=== PATIENT | female | born 2000 | race Caucasian/White ===

== ENCOUNTER 2023-07-16 02:00 | Emergency (ER) | payer MEDICAID ==
[~2023-07-16] VITALS: Ht 165.1 cm; Wt 79.4 kg
[2023-07-16] MEDS ORDERED: METOCLOPRAMIDE HCL 10 MG/2 ML VIAL ONE (02:25)
[2023-07-16] MEDS ORDERED: diphenhydrAMINE 50 MG/1 ML VIAL ONE (02:25)
[2023-07-16] MEDS: IV NORMAL SALINE 1000 ML BAG IV ONE (02:37)
[2023-07-16] MEDS: METOCLOPRAMIDE HCL 10 MG/2 ML VIAL IV ONE (02:37)
[2023-07-16] MEDS: diphenhydrAMINE 50 MG/1 ML VIAL IV ONE (02:37)
[2023-07-16 03:14] LABS: BASOPHILS % (AUTO) 0.1 % (0.0-2.0); HEMATOCRIT 40.7 % (31.2-41.9); HEMOGLOBIN 13.9 g/dL (10.9-14.3); LYMPHOCYTES # (AUTO) 0.6 K/uL (0.8-4.8); LYMPHOCYTES % (AUTO) 5.7 % (20.5-51.5); MEAN CORPUSCULAR HEMOGLOBIN 32.9 uug (24.7-32.8); MEAN CORPUSCULAR HGB CONC 34 g/dL (32.3-35.6); MEAN CORPUSCULAR VOLUME 96.4 fL (75.5-95.3); MONOCYTES # (AUTO) 0.2 K/uL (0.1-1.30); MONOCYTES % (AUTO) 1.9 % (0.0-11.0); NEUTROPHILS % (AUTO) 92.3 % (38.5-71.5); PLATELET COUNT (AUTO) 283 K/uL (179-408); RED BLOOD CELL COUNT(AUTO) 4.22 MIL/uL (3.63-4.92); RED CELL DISTRIBUTION WIDTH 13.4 % (12.3-17.7); WHITE BLOOD COUNT (AUTO) 10.8 K/uL (3.8-11.8)
[2023-07-16 03:17] LABS: CALCIUM 9.7 mg/dL (8.5-10.1); CREATININE 0.8 mg/dL (0.6-1.3); POTASSIUM 3.7 mmol/L (3.5-5.1)
[2023-07-16 03:18] LABS: DIFFERENTIAL COMMENT 1
[2023-07-16 03:22] LABS: ALBUMIN 4.5 g/dL (3.4-5.0); BILIRUBIN,DIRECT 0.1 mg/dL (0.0-0.2); BILIRUBIN,TOTAL 0.5 mg/dL (0.2-1.0); TOTAL PROTEIN, SERUM 8.6 g/dL (6.4-8.2)
[2023-07-16] MEDS ORDERED: ONDA4TAB11 PO (03:34)
[2023-07-16 03:49] VITALS: BP 134/78; TEMP 97.8; O2SAT 98
== END 2023-07-16 03:57 | disposition home or self-care (01) ==
LOC: ER 02:07
DX: R11.2 Nausea with vomiting, unspecified (principal); R10.2 Pelvic and perineal pain
CPT/HCPCS: 99284; 96374; 96361; 96375; 80076; 80048; 83690; 85025; 84702; 36415; J1200; J2765; J7040; A4606; A4663

== ENCOUNTER 2023-07-17 14:12 | Emergency (ER) | payer MEDICAID ==
[~2023-07-17 14:12] MED LIST: ONDA4TAB11 PO
== END 2023-07-17 14:30 | disposition left against medical advice (07) ==
LOC: ER 14:12
DX: R11.10 Vomiting, unspecified (principal); Z53.21 Procedure and treatment not carried out due to patient leaving prior to being seen by health care provider

== ENCOUNTER 2024-03-20 20:01 | Emergency (ER) | payer MEDICAID ==
[~2024-03-20] VITALS: Ht 165.1 cm; Wt 74.8 kg
[2024-03-20] MEDS: ALBUTEROL SULFATE 2.5 MG/3 ML NEBU NEB ONE (21:04)
[2024-03-20] MEDS: IPRATROPIUM BROMIDE 0.5 MG/2.5 ML NEBU NEB ONE (21:04)
[2024-03-20 21:10] VITALS: O2SAT 98
[2024-03-20 21:24] VITALS: O2SAT 99
[2024-03-20] MEDS ORDERED: ALBU8.5H8 INH (21:45)
[2024-03-20] MEDS ORDERED: BENZ-13 PO (21:45)
[2024-03-20 21:51] VITALS: BP 126/82; TEMP 98.7; O2SAT 100
== END 2024-03-20 21:52 | disposition home or self-care (01) ==
LOC: ER 20:01
DX: J20.9 Acute bronchitis, unspecified (principal); R05.9 Cough, unspecified; R07.89 Other chest pain; Z79.899 Other long term (current) drug therapy; Z60.2 Problems related to living alone
CPT/HCPCS: A4606; A4663